=== PATIENT | female | born 1970 | race Caucasian/White ===

== ENCOUNTER 2020-02-10 07:09 | Emergency (ER) | payer MEDICAID ==
--- NOTE | 2020-02-10 08:19 | ER Document Report ---
ED General - General Chief Complaint: Sore Throat Stated Complaint: SORE THROAT,HEADACHE,COUGH Time Seen by Provider: 02/10/20 08:12 Primary Care Provider: [facility] [Provider Group] - Follow up in 1 week [facility] [Provider Group] - Follow up in 1 week [facility] [Provider Group] - Follow up in 3-5 days [facility] [Provider Group] - Follow up in 1 week - HPI Notes: 49-year-old female to the emergency department with complaints of abdominal pain, nausea, cough, shortness of breath, headaches for the past several days. She states that her fianc is sick with the same. She states that her fianc has had a contact with someone who has been positive for COVID-19. She denies any fevers or chills. She does admit to chronic pain. She just moved down here from [place] and has not been set up with any sort of pain management with primary care. She denies any leg swelling, chest pain, vomiting, diarrhea. The patient was evaluated during the global COVID 19 pandemic, and that diagnosis was suspected/considered upon their initial presentation. Their evaluation, treatment, and testing was consistent with current guidelines for patients who present with complaints or symptoms that may be related to COVID-19. - Related Data Allergies/Adverse Reactions: albuterol Allergy (Intermediate, Verified 02/10/20 08:31) pregabalin [From Lyrica] Allergy (Mild, Verified 02/10/20 08:31) tramadol Allergy (Mild, Verified 02/10/20 08:31) Past Medical History - General Information source: Patient - Social History Smoking Status: Current Every Day Smoker Frequency of alcohol use: Occasional Drug Abuse: None Family History: Reviewed & Not Pertinent Neurological Medical History: Reports: Hx Migraine Past Surgical History: Reports: Hx Cholecystectomy, Hx Hysterectomy, Hx Orthopedic Surgery Review of Systems - Review of Systems Constitutional: denies: Chills, Fever EENT: See HPI, Throat pain Cardiovascular: denies: Chest pain, Palpitations, Heart racing, Orthopnea, Dyspnea, Syncope, Dizziness, Lightheaded Respiratory: Cough, Short of breath Gastrointestinal: Abdominal pain, Nausea. denies: Diarrhea, Vomiting Genitourinary: denies: Burning, Dysuria, Frequency Musculoskeletal: No symptoms reported Skin: No symptoms reported Hematologic/Lymphatic: No symptoms reported Neurological/Psychological: No symptoms reported -: Yes All other systems reviewed and negative Physical Exam - Vital signs Vitals: Temp Pulse Resp BP Pulse Ox 97.2 F 62 12 103/62 98 02/10/20 08:26 02/10/20 08:26 02/10/20 08:26 02/10/20 08:26 02/10/20 08:26 Interpretation: Normal Notes: PHYSICAL EXAMINATION: GENERAL: Well-appearing, well-nourished and in no acute distress. HEAD: Atraumatic, normocephalic. EYES: Pupils equal round and reactive to light, extraocular movements intact, sclera anicteric, conjunctiva are normal. ENT: nares patent, oropharynx with mild erythema without exudates. Moist mucous membranes. TMs clear bilaterally NECK: Normal range of motion, supple without lymphadenopathy LUNGS: Breath sounds clear to auscultation bilaterally and equal. No wheezes rales or rhonchi. HEART: Regular rate and rhythm without murmurs ABDOMEN: Soft, nontender, normoactive bowel sounds. No guarding, no rebound. No masses appreciated. No CVA tenderness EXTREMITIES: Normal range of motion, no pitting or edema. No cyanosis. NEUROLOGICAL: No focal neurological deficits. Moves all extremities spont aneously and on command. PSYCH: Normal mood, normal affect. SKIN: Warm, Dry, normal turgor, no rashes or lesions noted. Course - Re-evaluation Re-evalutation: 02/10/20 09:49 Impression: Viral upper respiratory infection, possible COVID-19 exposure, body aches, cough. Med refill. Patient is from [place] initially and she is about to run out of all of her controlled substances. She does not have a primary care physician here. I consulted with our director of casework department [place] and we will give her information for [facility]. We will give a small amount of Klonopin for home use. She is to return if she has any worsening symptoms. Encouraged her to quarantine without fail until further formation about her Covid status comes back. Patient was provided with discharge information including: As a person under investigation for COVID-19, [place] includes the [facility] of Health and Human Services, division of public health advises you to adhere to the following guidance until your test results are reported to you. If your test result is positive, you will receive additional information from your provider and your local health department at that time. Remain at home until you are cleared by the healthcare provider public health authorities. Keep a log of visitors to your home and notify any visitors to your home of your isolation status. If you plan to move to a new address or leave the country, notify the local health department and your County. Call your doctor or seek care if you have an urgent medical need. Before seeking medical care, call ahead to get instructions from the provider before arriving at the medical office, clinic, or hospital. Notify them that you are being tested for the virus that causes COVID-19 so that arrangements can be made, as necessary, to prevent transmission to others in the healthcare setting. Next, notify the local health department and your County. If a medical emergency arises and you need to call 911, informed the first responders that you are being tested for the virus that causes COVID-19. Next, notified the local health department and your County. - Vital Signs Vital signs: Temp Pulse Resp BP Pulse Ox 97.2 F 67 18 99/68 L 99 02/10/20 08:26 02/10/20 10:09 02/10/20 10:09 02/10/20 10:09 02/10/20 10:09 - Diagnostic Test Radiology reviewed: Image reviewed, Reports reviewed - EKG Interpretation by Me Additional EKG results interpreted by me: Rate: 64 Rhythm: Sinus rhythm Interpretation: No STEMI, no ST changes, PACs. No comparison available. Discharge - Discharge Clinical Impression: Upper respiratory infection, Suspected COVID-19 virus infection, Generalized body aches, Sore throat, Medication refill Condition: Stable Disposition: HOME, SELF-CARE Instructions: COVID-19 Guidance for Persons Under Investigation, Upper Respiratory Illness ([facility]) Additional Instructions: Today had a negative chest x-ray, as well as negative rapid strep and influenza swabs. Your COVID-19 results are pending. Please quarantine without fail. You must wear a mask. Please follow-up with [facility] at [address] and their phone number is [phone]. They will need to manage your pain management. Please also follow-up outpatient with primary care at either [facility] or at [facility]. Return if you have worsening symptoms. As a person under investigation for COVID-19, [place] department of Health and Human Services, division of public health advises you to adhere to the following guidance until your test results are reported to you. If your test result is positive, you will receive additional information from your provider and your local health department at that time. Remain at home until you are cleared by the healthcare provider public health authorities. Keep a log of visitors to your home and notify any visitors to your home of your isolation status. If you plan to move to a new address or leave the country, notify the local health department and your County. Call your doctor or seek care if you have an urgent medical need. Before seeking medical care, call ahead to get instructions from the provider before arriving at the medical office, clinic, or hospital. Notify them that you are being tested for the virus that causes COVID-19 so that arrangements can be made, as necessary, to prevent transmission to others in the healthcare setting. Next, notify the local health department and your County. If a medical emergency arises and you need to call 911, informed the first responders that you are being tested for the virus that causes COVID-19. Next, notified the local health department and your County. Prescriptions: Clonazepam [Klonopin 1 mg Tablet] 1 mg PO BID #10 tablet Guaifen/Dextromethorphan/PE [Tussin Cf Cough-Cold Syrup] 5 ml PO Q6H #118 ml Ondansetron [Zofran Odt 4 mg Tablet] 1 - 2 tab PO Q4H PRN #15 tab.rapdis PRN Reason: For Nausea/Vomiting Referrals: [facility] [Provider Group] - Follow up in 1 week [facility] [Provider Group] - Follow up in 1 week [facility] [Provider Group] - Follow up in 1 week [facility] [Provider Group] - Follow up in 3-5 days
--- NOTE | 2020-02-10 09:23 | RADIOLOGY REPORT (SQ) ---
EXAM DESCRIPTION: CHEST SINGLE VIEW IMAGES COMPLETED DATE/TIME: 02/10/2020 8:48 am REASON FOR STUDY: chest wall pain COMPARISON: None. NUMBER OF VIEWS: One view. TECHNIQUE: Single frontal radiographic view of the chest acquired. LIMITATIONS: None. FINDINGS: LUNGS AND PLEURA: No opacities, masses or pneumothorax. No pleural effusion. MEDIASTINUM AND HILAR STRUCTURES: No masses. Contour normal. HEART AND VASCULAR STRUCTURES: Heart normal in size. Normal vasculature. BONES: No acute findings. HARDWARE: None in the chest. OTHER: No other significant finding. IMPRESSION: NO SIGNIFICANT RADIOGRAPHIC FINDING IN THE CHEST. TECHNICAL DOCUMENTATION: JOB ID: [id number] 2010 [employer]- All Rights Reserved Reading location - IP/workstation name: [email or web address]
[2020-02-10] MEDS ORDERED: HYDROCODONE/ACETAMINOPHEN 5-325 MG TABLET PO ONE (09:32)
[2020-02-10] MEDS ORDERED: ONDANSETRON 4 MG TAB.RAPDIS PO ONE (09:32)
[2020-02-10 09:39] LABS: A TYPE INFLUENZA AG NEGATIVE (NEGATIVE); B INFLUENZA AG NEGATIVE (NEGATIVE)
[2020-02-10 10:10] VITALS: BP 99/68
--- NOTE | 2020-02-10 12:55 | EKG REPORT ---
SEVERITY:- OTHERWISE NORMAL ECG - SINUS RHYTHM ATRIAL PREMATURE COMPLEX : Confirmed by: David Esposito MD 10-Feb-2020 12:54:21
== END 2020-02-10 10:10 | disposition home or self-care (01) ==
LOC: ER 07:09
DX: J06.9 Acute upper respiratory infection, unspecified (principal); M79.10 Myalgia, unspecified site; R51.9 Headache, unspecified; R10.9 Unspecified abdominal pain; F17.200 Nicotine dependence, unspecified, uncomplicated; Z20.828 Contact with and (suspected) exposure to other viral communicable diseases; Z90.49 Acquired absence of other specified parts of digestive tract
CPT/HCPCS: 93005; 99285; 87070; 87880; 87635; 87804; 71045; 93010; S0119; C9803